=== PATIENT | male | born 1955 | race Caucasian/White ===

== ENCOUNTER → 2019-05-29 | Day surgery (SDC) | payer OTHER ==
[~2019-05-29] MED LIST: BUPIVACAINE HCL 0.5% INJ 30 ML VIAL INJ ONE; CEFAZOLIN SOD 1 GM/NS 50ML 100 ML IV ONE; DEXAMETHASONE SOD PHOS INJ 4 MG/ML VIAL ONE; FENTANYL CITRATE/PF 100MCG/2 ML INJ ONE; KETOROLAC TROMETHAMINE 30 MG/ML VIAL ONE; LIDOCAINE HCL 2% LOCAL INJ 5 ML SDV VIAL INJ ONE; MIDAZOLAM HCL 2 MG/2 ML VIAL ONE; NEOSTIGMINE 1 MG/ML 10ML VIAL ONE; ONDANSETRON HCL INJ 2MG/ML 2ML 2 MG/ML VIAL ONE; PROPOFOL IV EMULSION 10 MG/ML 20 ML VIAL ONE; SEVOFLURANE INHAL SOLN 250 ML PEN BTL ONE
--- NOTE | 2019-05-29 07:10 | NUR ---
SPIRITUAL CARE - Pre-Surgery Assessment: Pt in bed. Pt's daughter at bedside. Pt reported supportive attention from family and friends. Intervention: I provided pastoral presence, hospitality, and sympathetic listening. I acquainted pt with availability of memorial marker designer while hospitalized. Outcome: Pt expressed appreciation for visit. No need for follow up indicated at this time. [facility] Spiritual Care Department O: [phone] Pager: [phone] ([phone] number calling from)
[2019-05-29 10:30] VITALS: BP 110/67
--- NOTE | 2019-05-29 16:16 | Operative Report ---
DATE OF PROCEDURE: 05/29/2019 SURGEON: Adrienne Morton DPM LOCKSTITCH WAISTBAND SETTER: None. PREOPERATIVE DIAGNOSIS: Rigid hammertoe, second right. POSTOPERATIVE DIAGNOSIS: Rigid hammertoe, second right. PROCEDURES: 1. Arthrodesis, proximal interphalangeal joint, second right. 2. Tenotomy and capsulotomy metatarsophalangeal joint, second right. COMPLICATIONS: None. CONDITION: Stable. PROCEDURE IN DETAIL: Under mild sedation, the patient was brought to the operating room, placed on the operating table in a supine position. Following IV sedation, anesthesia was obtained with a general anesthetic. At this point, the right foot scrubbed, prepped and draped in usual aseptic manner. Pneumatic ankle tourniquet was inflated 250 mmHg and the leg was lowered to the table. Arthrodesis of PIPJ. Attention was then directed to the dorsal aspect of the PIPJ where a linear incision was made overlying the extensor tendon and joint. The incision was deepened down to the level of the extensor tendon. The extensor tendon was then tenotomized. The joint was then visualized utilizing an oscillating saw. The joint was then prepared for arthrodesis and arthrodesis was accomplished with a Smart Toe. There was noted to be adequate compression clinically with the use of intraoperative fluoroscopy. The area was then flushed with copious amount of normal sterile saline solution. At this point, the extremity was noted to be contracted at the metatarsophalangeal joint. Linear incision was made overlying the joint. The incision was deepened via sharp and blunt dissection down to the level of the extensor tendon. The tenotomy and capsulotomy were then tenotomized. The area was then flushed with copious amount of normal sterile saline solution. The contracture was released. Human allograft was then inserted into the areas of incisions in order to prevent adhesions to promote healing of the area. The areas were then closed, closing the deepest layer with 3-0 Vicryl and 4-0 nylon. Clean dressing was applied consisting of Adaptic, 4x4s, Kerlix, and an Yaya bandage. The tourniquet was deflated. There was noted to be hyperemic response to all the digits. The patient tolerated the procedure and anesthesia well without complications, was transported to the recovery room with vital signs stable and vascular status intact to both feet. The patient will be discharged home when he meets criteria. He was given instructions to be partial weightbearing with the use of a fracture boot, to ice and elevate the foot while at rest, to call the office if any questions, concerns, or new problems arise. ESTHER Prince/JENNA /[id number]
== END | disposition home or self-care (01) ==
LOC: OR 06:26
PROVIDERS: ATTEND Podiatrist Foot & Ankle Surgery
DX: M20.41 Other hammer toe(s) (acquired), right foot (principal); M24.574 Contracture, right foot; Z01.810 Encounter for preprocedural cardiovascular examination
CPT/HCPCS: 28270; 28285; 93005; J0690; J1100; J1885; J2001; J2250; J2405; J2704; J2710; J3010; 76000